=== PATIENT | female | born 1955 | race Caucasian/White ===

== ENCOUNTER 2024-06-10 06:31 | Inpatient (IN) | payer MEDICARE, OTHER ==
[~2024-06-10] VITALS: Ht 157.5 cm; Wt 82.6 kg
[~2024-06-10 06:31] MED LIST: ACETAMINOPHEN 325 MG TABLET PO ONE
[2024-06-10] MEDS ORDERED: ACETAMINOPHEN ES 500 MG TABLET ONE (06:53)
[2024-06-10] MEDS ORDERED: dexaMETHasone SOD PHOSPHATE 1 ML ONE (07:02)
[2024-06-10] MEDS ORDERED: VANCOMYCIN 1 GM VIAL ONE (07:02)
[2024-06-10] MEDS ORDERED: LIDOCAINE 2%-EPI 1:100,000 30 ML VIAL ONE (07:02)
[2024-06-10] MEDS ORDERED: ANESTHESIA TRAY IN PYXIS 1 EA TRAY MC ONE (07:02)
[2024-06-10] MEDS ORDERED: OXYMETAZOLINE HCL NASAL SPRAY 30 ML BOTTLE NS ONE (07:15)
[2024-06-10] MEDS: ACETAMINOPHEN ES 500 MG TABLET PO PRN (07:18)
[2024-06-10] MEDS ORDERED: FENTANYL PF 100MCG/2ML AMPUL ONE (07:50)
[2024-06-10] MEDS ORDERED: MIDAZOLAM HCL 2 MG/2ML VIAL ONE (07:51)
[2024-06-10] MEDS ORDERED: FAMOTIDINE/PF INJ 20 MG/2 ML VIAL IV ONE (07:51)
[2024-06-10] MEDS ORDERED: ROCURONIUM BROMIDE 50 MG/5 ML ONE (07:51)
[2024-06-10] MEDS ORDERED: MEPERIDINE HCL/PF 50 MG/ML DISP.SYRIN IV PRN (10:30)
[2024-06-10] MEDS ORDERED: EPHEDRINE SULFATE IV 50MG VIAL IV PRN (10:30)
[2024-06-10] MEDS ORDERED: LABETALOL HCL IV 100MG VIAL IV PRN (10:30)
[2024-06-10] MEDS ORDERED: hydrALAZINE HCL IV 20 MG VIAL IV PRN (10:30)
[2024-06-10] MEDS ORDERED: ONDANSETRON HCL/PF 4 MG/2 ML VIAL IVP PRN (10:30)
[2024-06-10] MEDS ORDERED: HYDROMORPHONE 1 MG/1 ML DISP.SYRIN IV PRN (10:30)
[2024-06-10] MEDS ORDERED: FENTANYL PF 100MCG/2ML AMPUL IV PRN (10:30)
[2024-06-10] MEDS ORDERED: IV NS 0.9% 1,000 ML IV PRN (12:00)
[2024-06-10] MEDS ORDERED: ONDANSETRON HCL/PF 4 MG/2 ML VIAL IV PRN (12:00)
[2024-06-10] MEDS ORDERED: TRAZ-252 PO (12:52)
[2024-06-10] MEDS ORDERED: SITA100T PO (12:52)
[2024-06-10] MEDS ORDERED: GLIP10TA11 PO (12:52)
[2024-06-10] MEDS ORDERED: PANT40TA49 PO (12:52)
[2024-06-10] MEDS ORDERED: ASPI-1420 PO (12:52)
[2024-06-10] MEDS ORDERED: ICOS1CAP PO (12:52)
[2024-06-10] MEDS ORDERED: METF-442 PO (12:52)
[2024-06-10] MEDS ORDERED: CLON0.1T PO (12:52)
[2024-06-10] MEDS ORDERED: AMLO-212 PO (12:52)
[2024-06-10] MEDS ORDERED: OLME40TA18 PO (12:52)
[2024-06-10] MEDS ORDERED: ROSU20TA32 PO (12:52)
[2024-06-10] MEDS ORDERED: METO25TA20 PO (12:52)
[2024-06-10] MEDS: ACETAMINOPHEN 325 MG TABLET PO PRN (13:55)
[2024-06-10] MEDS: HYDROMORPHONE 1 MG/1 ML DISP.SYRIN IV PRN (16:02)
[2024-06-10] MEDS ORDERED: CLONIDINE HCL 0.1 MG TABLET PO PRN (16:30)
[2024-06-10] MEDS ORDERED: TRAZODONE 50 MG TABLET PO PRN (16:30)
[2024-06-10 16:49] VITALS: BP 135/68; TEMP 97.7
[2024-06-10] MEDS ORDERED: *INSULIN REGULAR(HUMULIN R)HUM 100 UNIT/ML VIAL SQ PRN (17:00)
[2024-06-10] MEDS ORDERED: Medication Not On Formulary EA (Icosapent Ethyl (Vascepa) 2 GM) PO SCH (17:00)
[2024-06-10] MEDS ORDERED: DEXTROSE 50%-WATER 50 ML DISP.SYRIN IV PRN (17:00)
[2024-06-10] MEDS: METFORMIN 500 MG TABLET PO SCH (17:31)
[2024-06-10] MEDS: METOPROLOL TARTRATE 25 MG TABLET PO SCH (17:32)
[2024-06-10] MEDS: BLOOD SUGAR DIAGNOSTIC 1 EACH STRIP VI SCH (17:32)
[2024-06-10] MEDS: ATORVASTATIN 40 MG TABLET PO SCH (18:00)
[2024-06-10] MEDS: VANCOMYCIN 1 GM in IV D5W 250ml IV SCH (20:54)
[2024-06-10 21:57] VITALS: BP 149/81; TEMP 98.4; O2SAT 96
[2024-06-10 22:04] VITALS: BP 147/95; TEMP 98.4; O2SAT 97
[2024-06-10] MEDS: INSULIN REGULAR, HUMAN 100 UNIT/ML 3 ML VIAL SQ PRN (23:15)
[2024-06-11 07:30] VITALS: BP 93/66; TEMP 98.1; O2SAT 98
[2024-06-11] MEDS: LINAGLIPTIN 5 MG TABLET PO SCH (08:59)
[2024-06-11] MEDS: glipiZIDE 10 MG TABLET PO SCH (08:59)
[2024-06-11] MEDS: PANTOPRAZOLE 40 MG TABLET.DR PO SCH (08:59)
[2024-06-11] MEDS: LOSARTAN POTASSIUM 50 MG TABLET PO SCH (08:59)
[2024-06-11] MEDS: ASPIRIN EC 81 MG TABLET.DR PO SCH (08:59)
[2024-06-11 09:00] VITALS: BP 93/66
[2024-06-11] MEDS: AMLODIPINE BESYLATE 5 MG TABLET PO SCH (09:00)
== END 2024-06-11 18:16 | disposition home or self-care (01) | DRG 141 ==
LOC: DS 06:31 → MED 11:56
PROVIDERS: ADMIT Internal Medicine; ATTEND Internal Medicine
PROC: 0N5R0ZZ Destruction of Maxilla, Open Approach (ICD-10-PCS; 2024-06-10)
PROC: 0NUR0JZ Supplement Maxilla with Synthetic Substitute, Open Approach (ICD-10-PCS; 2024-06-10)
PROC: 0NUR07Z Supplement Maxilla with Autologous Tissue Substitute, Open Approach (ICD-10-PCS; 2024-06-10)
PROC: 09UR07Z Supplement Left Maxillary Sinus with Autologous Tissue Substitute, Open Approach (ICD-10-PCS; 2024-06-10)
PROC: 0NSR04Z Reposition Maxilla with Internal Fixation Device, Open Approach (ICD-10-PCS; principal; 2024-06-10 07:30)
DX: S02.40DA Maxillary fracture, left side, initial encounter for closed fracture (principal); M87.9 Osteonecrosis, unspecified; M27.2 Inflammatory conditions of jaws; S02.40CA Maxillary fracture, right side, initial encounter for closed fracture; E11.9 Type 2 diabetes mellitus without complications; E66.9 Obesity, unspecified; I10 Essential (primary) hypertension; E78.5 Hyperlipidemia, unspecified; F17.200 Nicotine dependence, unspecified, uncomplicated; Z68.33 Body mass index [BMI] 33.0-33.9, adult; Z79.84 Long term (current) use of oral hypoglycemic drugs; Z79.82 Long term (current) use of aspirin; Z79.899 Other long term (current) drug therapy; D16.4 Benign neoplasm of bones of skull and face; J32.9 Chronic sinusitis, unspecified; M27.40 Unspecified cyst of jaw; X58.XXXA Exposure to other specified factors, initial encounter; Y92.9 Unspecified place or not applicable
CPT/HCPCS: 82962-TC; A4223; A4338; C1713; C1781; G0378; J1100; J1171; J1308; J1815; J2250; J2405; J2704; J3010; J3370; J3490; J7030; J7060

== ENCOUNTER 2024-10-22 08:56 | Inpatient (IN) | payer MEDICARE, OTHER ==
[~2024-10-22] VITALS: Ht 152.4 cm; Wt 83.5 kg
[~2024-10-22 08:56] MED LIST changes: -ACETAMINOPHEN 325 MG TABLET PO ONE; +AMLO-212 PO; +ASPI-1420 PO; +CLON0.1T PO; +GLIP10TA11 PO; +ICOS1CAP PO; +METF-442 PO; +METO25TA20 PO; +OLME40TA18 PO; +PANT40TA49 PO; +ROSU20TA32 PO; +SITA100T PO; +TRAZ-252 PO
[2024-10-22] MEDS ORDERED: FENTANYL PF 100MCG/2ML AMPUL ONE (10:30)
[2024-10-22] MEDS ORDERED: SUGAMMADEX SODIUM 200 MG/2 ML VIAL IV ONE (10:31)
[2024-10-22] MEDS ORDERED: OXYMETAZOLINE HCL NASAL SPRAY 30 ML BOTTLE NS ONE (10:31)
[2024-10-22] MEDS ORDERED: ROCURONIUM BROMIDE 50 MG/5 ML ONE (10:31)
[2024-10-22] MEDS ORDERED: MIDAZOLAM HCL 2 MG/2ML VIAL ONE (10:31)
[2024-10-22] MEDS ORDERED: VANCOMYCIN 1 GM VIAL ONE (10:33)
[2024-10-22] MEDS ORDERED: dexaMETHasone SOD PHOSPHATE 1 ML ONE (10:34)
[2024-10-22] MEDS ORDERED: LIDOCAINE 2%-EPI 1:100,000 30 ML VIAL ONE (10:40)
[2024-10-22] MEDS ORDERED: ACETAMINOPHEN 325 MG TABLET ONE (13:33)
[2024-10-22] MEDS: ACETAMINOPHEN 325 MG TABLET PO PRN ×2 (13:39→20:34)
[2024-10-22 14:00] VITALS: BP 126/80; TEMP 98; O2SAT 97
[2024-10-22 14:15] VITALS: BP 122/76; TEMP 98; O2SAT 97
[2024-10-22 14:30] VITALS: BP 125/80; TEMP 98; O2SAT 97
[2024-10-22 15:00] VITALS: BP 127/85; TEMP 98.2; O2SAT 99
[2024-10-22] MEDS ORDERED: DEXTROSE 50%-WATER 50 ML DISP.SYRIN IV PRN (15:00)
[2024-10-22] MEDS ORDERED: TRAZODONE 50 MG TABLET PO PRN (15:00)
[2024-10-22] MEDS ORDERED: CLONIDINE HCL 0.1 MG TABLET PO PRN (15:00)
[2024-10-22] MEDS ORDERED: ONDANSETRON HCL/PF 4 MG/2 ML VIAL IVP PRN (15:00)
[2024-10-22 16:00] VITALS: BP 126/70; TEMP 97.5; O2SAT 95
[2024-10-22] MEDS: MORPHINE SULFATE INJ 2 MG/ML DISP.SYRIN IV PRN (16:23)
[2024-10-22] MEDS ORDERED: Medication Not On Formulary EA (Icosapent Ethyl (Vascepa) 2 GM) PO SCH (17:00)
[2024-10-22] MEDS ORDERED: HYDROMORPHONE 1 MG/1 ML DISP.SYRIN IV PRN (17:00)
[2024-10-22] MEDS ORDERED: ONDANSETRON HCL/PF 4 MG/2 ML VIAL IV PRN (17:00)
[2024-10-22] MEDS ORDERED: ACETAMINOPHEN 325 MG TABLET PO PRN (17:00)
[2024-10-22] MEDS: ATORVASTATIN 40 MG TABLET PO SCH (17:54)
[2024-10-22] MEDS: METOPROLOL TARTRATE 25 MG TABLET PO SCH (17:55)
[2024-10-22] MEDS: IV NS 0.9% 1,000 ML IV PRN (17:56)
[2024-10-22 20:00] VITALS: BP 115/60; TEMP 97.3; O2SAT 97
[2024-10-22] MEDS: BLOOD SUGAR DIAGNOSTIC 1 EACH STRIP IN SCH (21:56)
[2024-10-22] MEDS: INSULIN REGULAR, HUMAN 100 UNIT/ML 3 ML VIAL SQ PRN (21:58)
[2024-10-22] MEDS: VANCOMYCIN 1 GM in IV D5W 250ml IV SCH (22:40)
[2024-10-22] MEDS: INSULIN REGULAR, HUMAN 100 UNIT/ML 10 ML VIAL SQ ONE (23:23)
[2024-10-23 04:00] VITALS: BP 103/51; TEMP 97.9; O2SAT 96
[2024-10-23 06:29] LABS: PLATELET COUNT (AUTO) 193 K/uL (150-450); RED BLOOD CELL COUNT(AUTO) 3.97 MIL/uL (4.0-5.2); RED CELL DISTRIBUTION WIDTH 13.3 % (11.5-15.0); WHITE BLOOD COUNT (AUTO) 10.2 K/uL (4.3-11.0)
[2024-10-23 07:22] LABS: ASPARTATE AMINOTRANSFERASE 17.0 U/L (15-37); CALCIUM, SERUM 8.7 mg/dL (8.5-10.1); CREATININE 0.9 mg/dL (0.6-1.3); PHOSPHORUS 3.4 mg/dL (2.5-4.9); SODIUM SERUM 140.0 mmol/L (136-145); TOTAL PROTEIN, SERUM 6.6 g/dL (6.4-8.2); UREA NITROGEN, BLOOD 14.0 mg/dL (7-18)
[2024-10-23 08:29] VITALS: BP 117/60; TEMP 98.4; O2SAT 98
[2024-10-23] MEDS: LOSARTAN POTASSIUM 50 MG TABLET PO SCH (09:00)
[2024-10-23] MEDS: AMLODIPINE BESYLATE 5 MG TABLET PO SCH (09:00)
[2024-10-23 09:25] VITALS: BP 117/60
[2024-10-23] MEDS: METFORMIN 500 MG TABLET PO SCH (09:25)
[2024-10-23] MEDS: ASPIRIN EC 81 MG TABLET.DR PO SCH (09:26)
[2024-10-23] MEDS: LINAGLIPTIN 5 MG TABLET PO SCH (09:26)
[2024-10-23] MEDS: PANTOPRAZOLE 40 MG TABLET.DR PO SCH (09:59)
== END 2024-10-23 12:30 | disposition home or self-care (01) | DRG 908 ==
LOC: DS 08:56 → MED 14:16
PROVIDERS: ADMIT Internal Medicine; ATTEND Internal Medicine
PROC: 0NSR04Z Reposition Maxilla with Internal Fixation Device, Open Approach (ICD-10-PCS; 2024-10-22)
PROC: 0NUR07Z Supplement Maxilla with Autologous Tissue Substitute, Open Approach (ICD-10-PCS; 2024-10-22)
PROC: 0N5R0ZZ Destruction of Maxilla, Open Approach (ICD-10-PCS; principal; 2024-10-22 13:00)
DX: T86.831 Bone graft failure (principal); S02.40CK Maxillary fracture, right side, subsequent encounter for fracture with nonunion; T84.69XA Infection and inflammatory reaction due to internal fixation device of other site, initial encounter; S02.40DK Maxillary fracture, left side, subsequent encounter for fracture with nonunion; Y92.009 Unspecified place in unspecified non-institutional (private) residence as the place of occurrence of the external cause; E78.5 Hyperlipidemia, unspecified; I10 Essential (primary) hypertension; E11.9 Type 2 diabetes mellitus without complications; Y83.2 Surgical operation with anastomosis, bypass or graft as the cause of abnormal reaction of the patient, or of later complication, without mention of misadventure at the time of the procedure; K21.9 Gastro-esophageal reflux disease without esophagitis; Z79.84 Long term (current) use of oral hypoglycemic drugs; D16.4 Benign neoplasm of bones of skull and face; J32.9 Chronic sinusitis, unspecified; M89.38 Hypertrophy of bone, other site; T17.0XXA Foreign body in nasal sinus, initial encounter
CPT/HCPCS: 36415; 80053-TC; 82962-TC; 83735-TC; 84100-TC; 85025-TC; 88300-TC; 88305-TC; 88311-TC; A4223; A4338; C1713; G0378; J1100; J1815; J2250; J2270; J2405; J2704; J3010; J3373; J3490; J7030; J7040; J7060